=== PATIENT | male | born 1970 ===

== ENCOUNTER 2020-04-17 16:41 | Emergency (ER) | payer SELFPAY ==
[2020-04-17] MEDS ORDERED: Ondansetron ODT 4 MG TAB ONE (17:30)
--- NOTE | 2020-04-17 19:19 | ULT ---
Exam: Bilateral renal ultrasound HISTORY: Pain COMPARISON: None Correlation: Stone CT 04/17/2020, 04/12/2020 FINDINGS: Right kidney: Normal cortical echotexture. No hydronephrosis. Echogenic focus in the right renal pelv is measuring 0.9 cm may represent a nonobstructing calculus Right kidney measurements: 10.0 x 7.1 x 6.7 cm. Left kidney: Normal cortical echotexture. Mild hydronephrosis. Echogenic focus in the left renal deepak ex measuring 1 cm may represent a nonobstructing calculus. 2 additional echogenic foci are present. Left kidney measurements 6.8 x 11.9 x 5.9 cm. Urinary bladder: Normal mucosa. Ureteral jet is appreciated. Left ureteral jet is not appreciated. IMPRESSION: 1. Mild left sided hydronephrosis. 2. Bilateral intrarenal calculi.
[2020-04-17] MEDS ORDERED: Ketorolac Tromethamine 30 MG/ML VIAL ONE (20:12)
== END 2020-04-17 20:47 | disposition home or self-care (01) ==
LOC: ERS 16:41
DX: N13.2 Hydronephrosis with renal and ureteral calculous obstruction (principal); F90.9 Attention-deficit hyperactivity disorder, unspecified type
CPT/HCPCS: 76770; 96372; J1885; Q0162

== ENCOUNTER 2021-08-01 18:20 | Inpatient (IN) | payer OTHER ==
[2021-08-01] MEDS ORDERED: Acetaminophen 325 MG TAB PO PRN (20:33)
[2021-08-01] MEDS ORDERED: Ondansetron PF 4 MG/2 ML Vial IVP PRN (20:33)
[2021-08-01] MEDS: Sodium Chloride 0.9% 1,000 ML IV SCH (21:45)
[2021-08-01 22:34] VITALS: BMI 29.9
[2021-08-02] MEDS: traMADol HCl 50 MG TAB PO PRN (02:30)
[2021-08-02] MEDS: Cefepime 1 GM in Sodium Chloride 0.9% 100 ML IVPB SCH ×2 (05:51→17:25)
[2021-08-02 06:23] LABS: #Lymphocytes 1.7 thou/uL (1.20-3.40); #Monocytes 1.3 thou/uL (0.11-0.59); #Neutrophils 8.2 thou/uL (1.40-6.50); %Basophils 0.1 % (0.0-1.0); %Eosinophils 0.3 % (0.0-10.0); %Lymphocytes 14.8 % (21.0-51.0); %Monocytes 11.5 % (0.0-10.0); %Neutrophils 73.3 % (42.0-75.0); Hemoglobin 11.9 g/dL (14.0-18.0); Mean Corpuscular HGB CONC 32.1 g/dL (32.0-36.0); Mean Corpuscular Volume 96.7 fL (78.0-98.0); Mean Platelet Volume 7.1 fL (7.4-10.4); Platelet Count 221 thou/uL (130-400); RBC Distribution Width 12.8 % (11.5-14.5); Red Blood Cell (RBC) Count 3.83 mill/uL (4.70-6.10); White Blood Cell (WBC) Count 11.2 thou/uL (4.8-10.8)
[2021-08-02 06:42] LABS: Anion Gap 15 mmol/L (10-20); BUN (Urea Nitrogen) 13 mg/dL (8.9-20.6); Calc. Creatinine Clearance 116 mL/min (70-130); Carbon Dioxide 19 mmol/L (22-29); Chloride 108 mmol/L (98-107); Glucose 91 mg/dL (70-105); Sodium 138 mmol/L (136-145)
[2021-08-02] MEDS ORDERED: Fentanyl 100 MCG/2 ML VIAL ONE (08:21)
[2021-08-02] MEDS ORDERED: Iothalamate Meglumine 60% 50 ML VIAL FS ONE (08:46)
[2021-08-02] MEDS ORDERED: Midazolam HCl 2 mg/2 ml Vial ONE (08:59)
[2021-08-02] MEDS ORDERED: FLU VACC QS2021-22(6MOS UP)/PF 60 MCG/0.5 ML SYRINGE IM ONE (09:00)
[2021-08-02] MEDS ORDERED: ePHEDrine 50 MG/ML VIAL ONE (10:30)
[2021-08-02] MEDS ORDERED: PROPOFOL 200 MG/20 ML VIAL ONE (10:30)
[2021-08-02] MEDS ORDERED: Lidocaine 1% PF 5 ML VIAL ONE (10:30)
[2021-08-02] MEDS ORDERED: Oxybutynin 5 MG TAB PO PRN (10:59)
[2021-08-02] MEDS ORDERED: Phenazopyridine HCl 97.5 MG TABLET PO PRN (10:59)
[2021-08-02] MEDS ORDERED: Mag-Al 1200 mg/1200 mg/30 ML UDCUP PO PRN (10:59)
[2021-08-02] MEDS ORDERED: Promethazine HCl 25 MG/ML VIAL IVPB PRN (11:04)
[2021-08-02] MEDS ORDERED: Promethazine HCl 25 MG/ML VIAL IM PRN (11:04)
[2021-08-02] MEDS ORDERED: Ondansetron HCl/PF 4 MG/2 ML Vial IVP PRN (11:04)
[2021-08-02] MEDS: Sodium Chloride 0.9% 1,000 ML IV SCH ×2 (15:38→23:54)
[2021-08-02] MEDS: Docusate 100 MG CAP PO SCH (20:30)
[2021-08-02] MEDS: Famotidine/PF 20 mg/2ml Vial SLOW IVP SCH (20:30)
[2021-08-03] MEDS: traMADol HCl 50 MG TAB PO PRN (05:09)
[2021-08-03] MEDS: Cefepime 1 GM in Sodium Chloride 0.9% 100 ML IVPB SCH ×2 (05:10→18:03)
[2021-08-03] MEDS: Sodium Chloride 0.9% 1,000 ML IV SCH (05:11)
[2021-08-03 06:58] LABS: #Lymphocytes 0.9 thou/uL (1.20-3.40); #Monocytes 0.8 thou/uL (0.11-0.59); #Neutrophils 10.3 thou/uL (1.40-6.50); %Basophils 0.1 % (0.0-1.0); %Eosinophils 0.3 % (0.0-10.0); %Lymphocytes 7.7 % (21.0-51.0); %Monocytes 6.7 % (0.0-10.0); %Neutrophils 85.3 % (42.0-75.0); Hemoglobin 11.7 g/dL (14.0-18.0); Mean Corpuscular HGB CONC 33.8 g/dL (32.0-36.0); Mean Corpuscular Hemoglobin 32.7 pg (27.0-31.0); Mean Platelet Volume 7.3 fL (7.4-10.4); Platelet Count 245 thou/uL (130-400); RBC Distribution Width 12.7 % (11.5-14.5); Red Blood Cell (RBC) Count 3.56 mill/uL (4.70-6.10); White Blood Cell (WBC) Count 12.1 thou/uL (4.8-10.8)
[2021-08-03 07:13] LABS: Anion Gap 10 mmol/L (10-20); BUN (Urea Nitrogen) 11 mg/dL (8.9-20.6); Calc. Creatinine Clearance 160 mL/min (70-130); Calcium 8.7 mg/dL (7.8-10.44); Carbon Dioxide 23 mmol/L (22-29); Chloride 108 mmol/L (98-107); Glucose 133 mg/dL (70-105); Potassium 4.3 mmol/L (3.5-5.1); Sodium 137 mmol/L (136-145)
[2021-08-03] MEDS: Famotidine/PF 20 mg/2ml Vial SLOW IVP SCH ×2 (09:23→20:09)
[2021-08-03] MEDS: Docusate 100 MG CAP PO SCH ×2 (09:23→20:14)
[2021-08-03] MEDS: Tamsulosin HCl 0.4 MG CAP PO SCH (09:33)
[2021-08-03] MEDS: Ketorolac Tromethamine 30 MG/ML VIAL IVP PRN ×2 (13:23→20:09)
[2021-08-04] MEDS: Sodium Chloride 0.9% 1,000 ML IV SCH ×2 (00:05→17:40)
[2021-08-04] MEDS: Cefepime 1 GM in Sodium Chloride 0.9% 100 ML IVPB SCH ×2 (05:34→18:32)
[2021-08-04 05:49] LABS: #Lymphocytes 2.2 thou/uL (1.20-3.40); #Monocytes 0.5 thou/uL (0.11-0.59); #Neutrophils 4.9 thou/uL (1.40-6.50); %Basophils 0.3 % (0.0-1.0); %Eosinophils 0.6 % (0.0-10.0); %Lymphocytes 28.6 % (21.0-51.0); %Monocytes 6.5 % (0.0-10.0); %Neutrophils 63.9 % (42.0-75.0); Hemoglobin 11.4 g/dL (14.0-18.0); Mean Corpuscular HGB CONC 33.1 g/dL (32.0-36.0); Mean Corpuscular Hemoglobin 32.4 pg (27.0-31.0); Mean Corpuscular Volume 97.8 fL (78.0-98.0); Mean Platelet Volume 7.1 fL (7.4-10.4); Platelet Count 260 thou/uL (130-400); RBC Distribution Width 12.6 % (11.5-14.5); White Blood Cell (WBC) Count 7.6 thou/uL (4.8-10.8)
[2021-08-04 06:07] LABS: Anion Gap 9 mmol/L (10-20); BUN (Urea Nitrogen) 15 mg/dL (8.9-20.6); Calc. Creatinine Clearance 148 mL/min (70-130); Calcium 8.5 mg/dL (7.8-10.44); Carbon Dioxide 24 mmol/L (22-29); Chloride 111 mmol/L (98-107); Glucose 100 mg/dL (70-105); Potassium 3.8 mmol/L (3.5-5.1); Sodium 140 mmol/L (136-145)
[2021-08-04] MEDS: Docusate 100 MG CAP PO SCH ×2 (08:28→21:53)
[2021-08-04] MEDS: Tamsulosin HCl 0.4 MG CAP PO SCH (08:29)
[2021-08-04] MEDS: Enoxaparin Sodium 30 MG/0.3 ML SYRINGE SC SCH (08:29)
[2021-08-04] MEDS: Famotidine/PF 20 mg/2ml Vial SLOW IVP SCH ×2 (08:29→21:53)
[2021-08-04] MEDS: Ketorolac Tromethamine 30 MG/ML VIAL IVP PRN ×2 (09:58→17:33)
[2021-08-05] MEDS: Cefepime 1 GM in Sodium Chloride 0.9% 100 ML IVPB SCH (06:09)
[2021-08-05] MEDS: Sodium Chloride 0.9% 1,000 ML IV SCH (06:10)
[2021-08-05 09:03] VITALS: BP 130/88; TEMP 98.1
[2021-08-05 09:03] LABS: Bilirubin Negative (Negative); Blood, Urine 2+ (Negative); Clarity Clear (Clear); Glucose, Urine (Dipstick) Normal (Negative); Ketone, Urine Negative (Negative); Leukocyte 75 Leu/uL (Negative); Nitrite Negative (Negative); Protein, Urine (Dipstick) Negative (Neg-Trace); RBC/HPF Greater than 50 HPF (0-3); Squamous Epithelial None Seen HPF (0-3); Urobilinogen Normal mg/dL (Less than 2); pH, Urine 6.5 (5.0-9.0)
[2021-08-05 09:04] LABS: Bacteria/HPF Rare-Few HPF (None Seen)
[2021-08-05] MEDS: Docusate 100 MG CAP PO SCH (10:41)
[2021-08-05] MEDS: Tamsulosin HCl 0.4 MG CAP PO SCH (10:41)
[2021-08-05] MEDS: Famotidine/PF 20 mg/2ml Vial SLOW IVP SCH (10:41)
[2021-08-05] MEDS: Ketorolac Tromethamine 30 MG/ML VIAL IVP PRN (10:47)
[2021-08-05] MEDS: Enoxaparin Sodium 30 MG/0.3 ML SYRINGE SC SCH (10:56)
== END 2021-08-05 11:49 | disposition home or self-care (01) | DRG 854 ==
LOC: T4-A 20:02
PROVIDERS: ADMIT Family Medicine; ATTEND Internal Medicine
PROC: 0T768DZ Dilation of Right Ureter with Intraluminal Device, Via Natural or Artificial Opening Endoscopic (ICD-10-PCS; principal; 2021-08-02)
PROC: BT1D1ZZ Fluoroscopy of Right Kidney, Ureter and Bladder using Low Osmolar Contrast (ICD-10-PCS; 2021-08-02)
DX: A41.9 Sepsis, unspecified organism (principal); N17.9 Acute kidney failure, unspecified; Z20.822 Contact with and (suspected) exposure to COVID-19; N13.6 Pyonephrosis; I50.32 Chronic diastolic (congestive) heart failure; F17.210 Nicotine dependence, cigarettes, uncomplicated; I25.10 Atherosclerotic heart disease of native coronary artery without angina pectoris; E78.5 Hyperlipidemia, unspecified; D64.9 Anemia, unspecified; N20.0 Calculus of kidney; F41.9 Anxiety disorder, unspecified; F31.9 Bipolar disorder, unspecified; Z80.0 Family history of malignant neoplasm of digestive organs; Z80.1 Family history of malignant neoplasm of trachea, bronchus and lung
CPT/HCPCS: 36415; 74420; 80048; 81001; 83605; 85025; 87040; 87086; 93005; 93010; C2617; J0692; J1885; J2250; J2704; J3010; J3490; J7050; Q9961-U8; S0028

== ENCOUNTER 2021-08-19 10:29 | Outpatient (CLI) | payer OTHER ==
[2021-08-19 13:32] LABS: Hemoglobin 13.1 g/dL (13.5-17.5); Mean Corpuscular Hemoglobin 30.5 pg (27.0-33.0); Mean Corpuscular Volume 95.1 fl (81.2-95.1); Mean Platelet Volume 9.8 fl (7.4-10.4); Platelet Count 343 10x3/uL (150-450); RBC Distribution Width 13.7 % (11.5-14.5); White Blood Cell (WBC) Count 6.8 10x3/uL (3.5-10.5)
[2021-08-19 13:52] LABS: INR-International Normal Ratio 0.9; PTT 27.6 sec (22.0-33.0)
[2021-08-19 14:14] LABS: Anion Gap 11 mmol/L (10-20); BUN (Urea Nitrogen) 11 mg/dL (8.9-20.6); Calc. Creatinine Clearance 0 mL/min (70-130); Calcium 8.8 mg/dL (7.8-10.44); Carbon Dioxide 30 mmol/L (22-29); Chloride 103 mmol/L (98-107); Glucose 81 mg/dL (70-105); Potassium 4.8 mmol/L (3.5-5.1); Sodium 139 mmol/L (136-145)
[2021-08-19 20:13] LABS: SARS-CoV-2 PCR by NAA Not Detected (NotDetected)
== END 2021-08-19 10:30 | disposition home or self-care (01) ==
LOC: LABBT 10:29
PROVIDERS: ATTEND Urology
DX: Z01.818 Encounter for other preprocedural examination (principal); Z20.822 Contact with and (suspected) exposure to COVID-19
CPT/HCPCS: 80048; 85027; 85610; 85730; 93005; 93010; U0003; U0005

== ENCOUNTER 2021-08-25 12:12 | Outpatient (CLI) | payer OTHER ==
[2021-08-26 07:27] LABS: SARS-CoV-2 PCR by NAA Not Detected (NotDetected)
== END 2021-08-25 12:13 | disposition home or self-care (01) ==
LOC: LABBT 12:12
PROVIDERS: ATTEND Urology
DX: Z01.812 Encounter for preprocedural laboratory examination (principal); N20.1 Calculus of ureter; Z20.822 Contact with and (suspected) exposure to COVID-19
CPT/HCPCS: U0003; U0005

== ENCOUNTER 2021-08-27 09:49 | Observation (INO) | payer OTHER, SELFPAY ==
[2021-08-27] MEDS ORDERED: Iothalamate Meglumine 60% 50 ML VIAL FS ONE (11:54)
[2021-08-27] MEDS ORDERED: Fentanyl 100 MCG/2 ML VIAL ONE (14:26)
[2021-08-27] MEDS ORDERED: cefTRIAXone\\ROCEPHIN 2 GM VIAL ONE (14:28)
[2021-08-27] MEDS ORDERED: Sodium Chloride 0.9% 100 ML ONE (14:28)
[2021-08-27] MEDS ORDERED: PHENYLEPHRINE-NS 100 MCG/ML 10 ML SYRINGE ONE (14:39)
[2021-08-27] MEDS ORDERED: Glycopyrrolate 0.2 MG/ML 5 ML SYRINGE ONE (14:39)
[2021-08-27] MEDS ORDERED: PROPOFOL 200 MG/20 ML VIAL ONE (14:39)
[2021-08-27] MEDS ORDERED: Ketorolac Tromethamine 30 MG/ML VIAL ONE (14:39)
[2021-08-27] MEDS ORDERED: Ondansetron PF 4 MG/2 ML Vial ONE (14:39)
[2021-08-27] MEDS ORDERED: Lidocaine 1% PF 5 ML VIAL ONE (14:39)
[2021-08-27] MEDS ORDERED: Rocuronium Bromide 10 MG/ML (10ML VIAL) ONE (14:39)
[2021-08-27] MEDS ORDERED: Dexamethasone 20 MG/5 ML VIAL ONE (14:39)
[2021-08-27] MEDS ORDERED: Midazolam HCl 2 mg/2 ml Vial ONE (16:03)
[2021-08-27] MEDS ORDERED: HYDROmorphone 2 MG/ML VIAL SLOW IVP PRN (16:07)
[2021-08-27] MEDS ORDERED: Promethazine HCl 25 MG/ML VIAL IM PRN (16:07)
[2021-08-27] MEDS ORDERED: Ondansetron HCl/PF 4 MG/2 ML Vial IVP PRN (16:07)
[2021-08-27] MEDS ORDERED: PACU-Morphine 4MG/ML VIAL SLOW IVP PRN (16:07)
[2021-08-27] MEDS ORDERED: Morphine Sulfate 2 MG/ML SYRINGE SLOW IVP PRN (16:07)
[2021-08-27] MEDS ORDERED: Promethazine HCl 25 MG/ML VIAL IVPB PRN (16:07)
[2021-08-27] MEDS ORDERED: Acetaminophen 500 MG TAB PO PRN (16:13)
[2021-08-27] MEDS ORDERED: Ketorolac Tromethamine 30 MG/ML VIAL IVP PRN (16:13)
[2021-08-27] MEDS ORDERED: Ondansetron PF 4 MG/2 ML Vial IVP PRN (16:13)
[2021-08-27] MEDS ORDERED: diphenhydrAMINE 50 MG/ML VIAL IVP PRN (16:13)
[2021-08-27] MEDS ORDERED: HYDROcodone/Acetaminophen 5/325 mg Tablet PO PRN ×2 (16:13)
[2021-08-27] MEDS ORDERED: Mag-Al 1200 mg/1200 mg/30 ML UDCUP PO PRN (16:13)
[2021-08-27] MEDS ORDERED: hydrALAZINE 20 MG/ML VIAL SLOW IVP PRN ×2 (16:13)
[2021-08-27] MEDS ORDERED: Oxybutynin 5 MG TAB PO PRN (16:13)
[2021-08-27] MEDS ORDERED: Sodium Chloride 0.9% 1,000 ML IV SCH (16:15)
[2021-08-27] MEDS ORDERED: Phenazopyridine HCl 100 MG TAB PO PRN (18:15)
[2021-08-27] MEDS: Sodium Chloride 0.9% 1,000 ML IV SCH (21:50)
[2021-08-27] MEDS: Docusate 100 MG CAP PO SCH (21:51)
[2021-08-27 23:39] VITALS: BMI 28.0
[2021-08-28] MEDS: Sodium Chloride 0.9% 1,000 ML IV SCH (05:32)
[2021-08-28] MEDS: Docusate 100 MG CAP PO SCH (08:20)
[2021-08-28 08:31] VITALS: BP 121/69; TEMP 98.4
[2021-08-28] MEDS ORDERED: FLU VACC QS2021-22(6MOS UP)/PF 60 MCG/0.5 ML SYRINGE IM ONE (09:00)
[2021-08-28] MEDS ORDERED: Tamsulosin HCl 0.4 MG CAP PO SCH (09:00)
== END 2021-08-28 09:30 | disposition home or self-care (01) ==
LOC: SDC 09:49 → SURG A 16:13
PROVIDERS: ADMIT Urology; ATTEND Urology
PROC: 0TC38ZZ Extirpation of Matter from Right Kidney Pelvis, Via Natural or Artificial Opening Endoscopic (ICD-10-PCS; principal; 2021-08-27)
PROC: 0TC68ZZ Extirpation of Matter from Right Ureter, Via Natural or Artificial Opening Endoscopic (ICD-10-PCS; 2021-08-27)
PROC: 0T768DZ Dilation of Right Ureter with Intraluminal Device, Via Natural or Artificial Opening Endoscopic (ICD-10-PCS; 2021-08-27)
DX: N20.2 Calculus of kidney with calculus of ureter (principal); I25.10 Atherosclerotic heart disease of native coronary artery without angina pectoris; E78.5 Hyperlipidemia, unspecified; I11.0 Hypertensive heart disease with heart failure; I50.30 Unspecified diastolic (congestive) heart failure; F17.210 Nicotine dependence, cigarettes, uncomplicated; Z79.2 Long term (current) use of antibiotics; Z79.899 Other long term (current) drug therapy
CPT/HCPCS: 74018; 74420; 82365; 88300; 90471; 90686; 90732; 96374; 96375; C2617; G0008; G0009; G0378; J0696; J1100; J1200; J1885; J1956; J2250; J2405; J2704; J3010; J3490; J7050; Q9961-U8